=== PATIENT | male | born 1995 | race Caucasian/White ===

== ENCOUNTER → 2021-09-16 | Outpatient (CLI) | payer OTHER | LOC: COL.RAD 11:56 | DX: R51.9 Headache, unspecified (principal) ==

== ENCOUNTER → 2022-03-08 | Outpatient (CLI) | payer OTHER | LOC: COL.RAD 07:45 | DX: Z04.9 Encounter for examination and observation for unspecified reason (principal); D69.6 Thrombocytopenia, unspecified ==